=== PATIENT | male | born 1985 | race Caucasian/White ===

== ENCOUNTER 2017-02-01 04:24 | Observation (INO) | payer OTHER ==
--- NOTE | ~2017-02-01 | HP ---
Unit #: [id number] #: [id number] Patient: EVER CAMPOS JR [id number] [facility] [address] [facility]. [place], [place] [address] [id number] I MR#: [id number] NAME: EVER CAMPOS JR ROOM: [id number] Age: 31 Sex: M Admission Date: 02/01/2017 : 1985 Attending Physician: Nicci Padron M.D. Primary Care Physician: No Primary Care Physician HISTORY AND PHYSICAL CHIEF COMPLAINT Altered level of consciousness. HPI The patient is a 31-year-old male with past medical history of substance abuse and hypertension, who presented to the emergency department for evaluation of the above. The patient was apparently initially quite agitated. He had used methamphetamine. He was afraid someone was trying to hurt him. He did not have any suicidal or homicidal ideations. He received a total of 20 mg of Geodon and 3 mg of Ativan. He was placed on a 72-hold. At the time of my evaluation, the patient is awake and alert. He is oriented x3. He denies suicidal or homicidal ideations. He states that he used methamphetamine. He has a history of heroin abuse. Laboratory is notable for CPK of 2349. He was given 2 liters of normal saline in the emergency department. He is being admitted to [facility] for evaluation and further treatment. PAST MEDICAL HISTORY 1. The patient denies any hospitalizations. 2. Hypertension. PAST SURGICAL HISTORY Knee surgery. SOCIAL HISTORY The patient lives with his parents. He smokes a pack of cigarettes daily. He has a history of heroin abuse as well as methamphetamine. He works as a cook. FAMILY HISTORY Notable for both parents having hypertension. ALLERGIES No known allergies. HOME MEDICATIONS None. REVIEW OF SYSTEMS A complete review of systems is negative, except as indicated in the HPI. Unit #: [id number] #: [id number] Patient: EVER CAMPOS JR DIAGNOSTIC STUDIES LABORATORY: Troponin is less than 0.05. Complete blood count notable for hemoglobin of 16.1. Comprehensive metabolic panel notable for a CO2 of 20; anion gap is 10; glucose 113; AST and ALT 109 and 113, respectively; and total bilirubin is 3. Alcohol level is less than 5. Urine tox screen is positive for amphetamine and marijuana. CPK is 2349. PHYSICAL EXAMINATION VITAL SIGNS: Temperature is 97.7, pulse 126, respirations 28, blood pressure 143/91, and oxygen saturation is 98% on room air. GENERAL: The patient is a male who is awake and alert, but was previously quite agitated requiring restraints. HEENT: The head is atraumatic. Mucous membranes are moist. NECK: Supple. Trachea is midline. CARDIOVASCULAR: Regular rate and rhythm. LUNGS: Clear to auscultation bilaterally with no increased work of breathing. ABDOMEN: Soft and nontender with bowel sounds present in all four quadrants. EXTREMITIES: Nontender with no pedal edema. NEUROLOGIC: The patient is awake and alert. He is oriented x3. He follows commands. PSYCH: The patient was initially quite agitated and anxious. Now he is cooperative. SKIN: Skin of examined areas is warm and dry. ASSESSMENT The patient is a 31-year-old male with: 1. Altered mental status secondary to #2. 2. Methamphetamine abuse. 3. Rhabdomyolysis with an initial CPK of 2349. He has received 2 liters of normal saline. 4. Transaminitis. 5. Hypertension. 6. Tobacco abuse. PLAN 1. Admit for observation to intermediate level. 2. Normal saline at 150 mL/hour. 3. Neuro checks q.[address] Alan regarding substance abuse. 5. Check hepatitis panel, HIV, and right upper quadrant ultrasound for further evaluation of transaminitis and history of IV drug use. 6. SCDs for DVT prophylaxis. 7. See orders for details. 8. Additional workup and consultants based on above. 9. Repeat labs in the morning including CPK. Dictated by Winston Johnson TD: 02/01/2017 11:30 JOB #: [id number] Unit #: [id number] #: [id number] Patient: EVER CAMPOS JR HISTORY AND PHYSICAL Page 1 of 1 X Nicci Padron MD HISTORY AND PHYSICAL
--- NOTE | ~2017-02-01 | EKG ---
PATIENT: EVER CAMPOS UNIT #: [id number] Ventricular Rate: 109 BPM Atrial Rate: 109 BPM P-R Interval: 140 ms QRS Duration: 92 ms Q-T Interval: 322 ms QTC Calculation(Bezet): 433 ms P [place]: 60 degrees Calculated R [place]: 25 degrees Calculated T [place]: 35 degrees Diagnosis Line: Sinus tachycardia Diagnosis Line: Otherwise normal ECG Diagnosis Line: When compared with ECG of 09-JUN-2015 16:44, Diagnosis Line: No significant change was found Diagnosis Line: Confirmed by DARCY PINK MD ([id number]) on 02/02/2017 Diagnosis Line: 4:41:46 PM INTERPRETING MD: APRYL THOMAS
[~2017-02-01 04:24] MED LIST: ACETAMINOPHEN PO; ALBUTEROL17 GM INH; AMOXICILLIN500 M1 PO; BENZONATATE PO; MEDROL PO; NO MEDICATIONS; OMNICEF PO; PHENERGAN PO; PHENERGAN W/CO120 ML PO; VIBRAMYCIN100 M1 PO; VICODIN 5/500 T1 TAB PO; VOLTAREN75 MG PO
[2017-02-01 05:59] LABS: POC - CKMB 10.8 ng/mL (0.0-7.9); POC - TROPONIN <0.05 ng/mL (<=0.05)
[2017-02-01 06:04] LABS: BASOPHIL# 0.1 X10e3 (0-0.3); BASOPHIL% 0.7 % (0-2.5); EOSINOPHIL% 0.4 % (0.0-7.0); HEMATOCRIT 48.2 % (38.0-50.0); HEMOGLOBIN 16.1 gm/dL (13.0-16.0); LYMPHOCYTE# 1.7 X10e3 (1.0-3.5); LYMPHOCYTE% 17.3 % (17.0-45.0); MEAN CELL VOLUME 93.1 FL (83-96); MEAN CORPUSCULAR HEMOGLOBIN 31.2 PG (28-34); MEAN CORPUSCULAR HGB CONC 33.4 g/dL (30-36); MEAN PLATELET VOLUME 7.5 FL (6.5-11.5); MONOCYTE# 0.9 X10e3 (0-1.0); MONOCYTE% 9.4 % (3.0-12.0); NEUTROPHIL# 7.3 X10e3 (1.5-7.1); NEUTROPHIL% 72.2 % (40-75); PLATELET COUNT 245 X10e3 (140-420); RED BLOOD COUNT 5.18 X10e (3.90-5.60); RED CELL DISTRIBUTION WIDTH 12.9 % (11.0-15.5); WHITE BLOOD COUNT 10.1 X10e3 (4.0-10.5)
[2017-02-01 06:06] LABS: DIFF IND NO
[2017-02-01 06:35] LABS: ALBUMIN SERUM 4.5 g/dL (3.5-5.0); ALKALINE PHOSPHATASE 89 U/L (32-92); ALT (SGPT) 113 U/L (10-40); AST (SGOT) 109 U/L (10-42); BLOOD UREA NITROGEN 17 mg/dL (9-23); BUN/CREATININE RATIO 18.88; CALCIUM SERUM 9.1 mg/dL (8.4-10.2); CARBON DIOXIDE 20 mmol/L (22-31); CHLORIDE 106 mmol/L (100-111); CREATININE SERUM 0.9 mg/dL (0.6-1.4); GLOM FILT RATE Estimated 111.8 mL/min (>60); GLUCOSE FASTING 113 mg/dL (70-110); POTASSIUM 3.6 mmol/L (3.5-5.1); PROTEIN TOTAL SERUM 7.6 g/dL (6.0-8.3); SODIUM 136 mmol/L (135-145)
[2017-02-01 06:36] LABS: ALCOHOL BLOOD <5 mg/dL (0)
[2017-02-01 11:00] LABS: AMPHETAMINE POS (NEG); BARBITURATES NEG (NEG); BENZODIAZEPINES NEG (NEG); COCAINE NEG (NEG); MARIJUANA POS (NEG); OPIATES NEG (NEG); TRICYCLIC ANTIDEPRESSANTS NEG (NEG); U METHADONE NEG (NEG)
[2017-02-01 14:21] LABS: %MB 0.9 % (0.0-4.0); MB 17.6 ng/ml
== END 2017-02-01 16:45 ==
LOC: CED 04:24 → CEDOF 09:01
PROVIDERS: Emergency Medicine; Family Medicine
DX: R41.82 Altered mental status, unspecified (principal); F15.10 Other stimulant abuse, uncomplicated; M62.82 Rhabdomyolysis; R74.0 Nonspecific elevation of levels of transaminase and lactic acid dehydrogenase [LDH]; I10 Essential (primary) hypertension; F17.200 Nicotine dependence, unspecified, uncomplicated
CPT/HCPCS: 80053; 80307; 82550; 82553; 84484; 85025; 93005; 96361; 96372; 96374; 99285; G0378; G0480; J0515; J1630; J2060; J3486

== ENCOUNTER 2017-02-01 15:00 | Inpatient (IN) | payer OTHER ==
--- NOTE | ~2017-02-01 | DS ---
Unit #: [id number] #: [id number] Patient: EVER CAMPOS JR [id number] [facility] [address] [place] [address] [id number] I MR#: [id number] NAME: EVER CAMPOS JR ROOM: [facility] Age: 31 Sex: M Admission Date: 02/01/2017 : 1985 Discharge Date: 02/04/2017 Attending Physician: Bruno Alan M.D. Primary Care Physician: Primary Care Physician No DISCHARGE SUMMARY REASON FOR ADMISSION Substance abuse and psychosis. DIAGNOSTIC STUDIES LABORATORY RESULTS: Showed urine drug screen positive for amphetamine and marijuana. The patient's uric acid, LDH, phosphorus, and CK within normal range. CK is 629. The patient's CK on admission was 2349. HOSPITAL COURSE The patient was admitted to inpatient unit and treated with expressive therapy, medication management, psychoeducation, and psychotherapy. The patient was responsive to treatment. The patient was also followed by the medical doctor for increased CK enzyme. The patient showed improvement. Subsequently, the patient was discharged with a plan to follow up in outpatient program. DISCHARGE MEDICATIONS None. DISCHARGE DIAGNOSES Psychiatric: 1. Psychosis, not otherwise specified, F29.0. 2. Mood disorder, not otherwise specified, F32.9. 3. Amphetamine use disorder, severe, F15.20. Secondary diagnosis: Deferred. Medical diagnoses: Hypertension, rhabdomyolysis. Stressors: Psychosocial stressors. DISCHARGE INSTRUCTIONS The patient is to follow up in outpatient clinic as per child welfare social worker. CONDITION ON DISCHARGE The patient was pleasant and cooperative. Denied any psychotic symptom or any suicidal ideation. PROGNOSIS Guarded. DIET AND ACTIVITY As tolerated. Unit #: [id number] #: [id number] Patient: EVER CAMPOS JR Dictated by... Winston HarkinsC/hank TD: 02/05/2017 03:12 JOB #: [id number] DISCHARGE SUMMARY Page 1 of 1 X Bruno Alan MD DISCHARGE SUMMARY
--- NOTE | ~2017-02-01 | PA ---
Unit #: [id number] #: [id number] Patient: EVER CAMPOS JR [id number] [facility] [address] [place] [address] [id number] MR#: [id number] NAME: EVER CAMPOS JR ROOM: P257 Age: 31 Sex: M Admission Date: 02/01/2017 : 1985 Date of Assessment: Attending Physician: Bruno Alan M.D. Admitting Physician: Bruno Alan M.D. Primary Care Physician: Primary Care Physician No PSYCHIATRIC ASSESSMENT INFORMANTS The patient's reliability, fair; chart reliability, good. CHIEF COMPLAINT Depression, substance abuse, and psychosis. HISTORY OF PRESENT ILLNESS Mr. Maya is a 31-year-old white male, seen on 2-Laura with the above-mentioned complaint. The patient was transferred from [facility]. The patient presented there, placed on 72-hour hold. The patient presented due to altered mental status due to amphetamine overdose. The patient was given 2 mg of Ativan prior to the transport. The patient became sleepy and drowsy. The patient was combative with security sme. The patient needed restraint, having withdrawal symptom. The patient also received Geodon 20 mg IM. The patient's CPK was high; therefore, he was seen at [facility], CPK 2349. The patient was given 2 L of normal saline, [facility]. PAST PSYCHIATRIC HISTORY Unremarkable for any history of previous treatment. FAMILY HISTORY AND SOCIAL HISTORY The patient has a poor support system. No known history of any psychiatric illness in the family. No history of legal problem or abuse. MEDICAL HISTORY Remarkable for increased CPK, diagnosed with rhabdomyolysis and hypertension. MEDICATIONS HISTORY None. ALLERGIES No known drug allergies. SUBSTANCE ABUSE HISTORY The patient reported use of tobacco, marijuana, opioids, amphetamine, details unknown at this time. REVIEW OF SYSTEMS HEENT: Eyes, clear. Ears, nose, mouth, and throat; clear. CARDIOVASCULAR: Unremarkable. Unit #: [id number] #: [id number] Patient: EVER CAMPOS JR RESPIRATORY: Unremarkable. GI: Unremarkable. : Unremarkable. SKIN: Unremarkable. LYMPH NODE: Unremarkable. NEUROLOGIC: Unremarkable. ENDOCRINE: Unremarkable. HEMATOLOGIC: Unremarkable. ALLERGIC/IMMUNOLOGIC: Unremarkable. MUSCULOSKELETAL: Muscle strength and tone, no atrophy or abnormal movement. Gait normal. MENTAL STATUS EXAMINATION CONSTITUTIONAL: Measurement of vital signs; temperature 98.3, pulse 117, respirations 28. Height is 5 feet 10-1/2 inches and weight 219 pounds. GENERAL APPEARANCE: The patient tall, well built, dressed casually. The patient did not show any facial deformity. MUSCULOSKELETAL: Please see above. PSYCHIATRIC EXAMINATION Description of speech, slow. Description of thought process, circumstantial. Description of association; guarded and paranoid. Denied any thoughts of harming self or others, but aggressive behavior as mentioned above, substance abuse. Description of the patient's judgment; concerning everyday activity, poor. Social situation, poor. Concerning psychiatric condition, poor. Complete mental status examination; oriented in time, place, and person. Recent and remote memory, fair. Attention span and concentration, fair. Language, able to name object and repeat phrases. Fund of knowledge, aware of current event and passive vocabulary intact. Mood and affect, sad and dysphoric. Insight and judgment, fair to poor. ASSETS AND LIABILITIES Assets; the patient articulate, able to take care of his ADL. Liability; history of depression, aggression, substance abuse. ADMITTING DIAGNOSES Psychiatric: Psychosis, not otherwise specified, F29.0; mood disorder, not otherwise specified, F32.9; amphetamine use disorder, severe, F15.20. Secondary diagnosis: Deferred. Medical diagnoses: Increased CPK, hypertension, rhabdomyolysis. Stressors: Psychosocial stressors. PSYCHIATRIC PLAN AND TREATMENT GOAL 1. Advised to admit the patient on the inpatient unit. Provide safe, supportive, and structured environment. 2. Ordered labs; CBC, CMP, UA, and UDS. 3. Medical consult to evaluate the patient's medical condition, rhabdomyolysis and hypertension. 4. The patient to attend all the programing. Advised Zyprexa 10 mg b.i.d. for the above-mentioned symptom. Treatment goal to attain euthymic mood, gain insight into his problem, and learn coping skills. DISCHARGE PLAN Unit #: [id number] #: [id number] Patient: EVER CAMPOS JR Plan to stabilize the patient and consider followup in outpatient program. ESTIMATED LENGTH OF STAY 3 to 5 days. Dictated by... Bruno Alan M.D. GLENNA/hank HORNE: 02/02/2017 18:14 TD: 02/02/2017 23:42 JOB #: [id number] PSYCHIATRIC ASSESSMENT Page 1 of 1 X Bruno Alan MD PSYCHIATRIC ASSESSMENT
--- NOTE | ~2017-02-01 | HP ---
Unit #: [id number] #: [id number] Patient: EVER CAMPOS JR [id number] [place] [address] [id number] I MR#: [id number] NAME: EVER CAMPOS JR ROOM: P257 Age: 31 Sex: M Admission Date: 02/01/2017 : 1985 Attending Physician: Bruno Alan M.D. Admitting Physician: Bruno Alan M.D. Primary Care Physician: Primary Care Physician No HISTORY AND PHYSICAL HISTORY OF PRESENT ILLNESS The patient is a 31-year-old male admitted to [address] [place] [address] on 02/01/2017 for methamphetamine abuse. PAST MEDICAL HISTORY 1. Hypertension 2. Rhabdomyolysis PAST SURGICAL HISTORY Knee surgery. 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 He smokes one pack of cigarettes daily and has a history of heroin and methamphetamine use. FAMILY MEDICAL HISTORY Noncontributory. ALLERGIES No known drug allergies. CURRENT MEDICATIONS The patient is not on any home medications. REVIEW OF SYSTEMS CONSTITUTIONAL: No fever or chills. HEENT: Denies any sore throat, ear pain or runny nose. CARDIOVASCULAR: Denies chest pain, irregular heart rhythm or palpitations. CHEST: Denies shortness of breath or cough. No hemoptysis. GASTROINTESTINAL: Denies nausea, vomiting, diarrhea or chronic constipation. ENDOCRINE: Denies history of increased thirst or urination. No recent significant weight loss or gain. GENITOURINARY: Denies dysuria, frequency, or hematuria. SKIN: Denies any rashes. HEMATOLOGIC: Denies history of increased bleeding or bruising. MUSCULOSKELETAL: Denies any hot, swollen joints. No generalized muscle pain. NEUROLOGIC: Denies problems with vision or speech. No frequent, severe headaches. No numbness, tingling or weakness in any extremities. Denies loss of bladder or bowel control. PHYSICAL EXAM Unit #: [id number] #: [id number] Patient: EVER CAMPOS JR GENERAL: He is awake, alert and oriented in no acute distress. VITAL SIGNS: Temperature 97.7, heart rate 126, respiration 28, blood pressure 143/91. HEIGHT: 5'10". WEIGHT: 220 pounds. SKIN: Warm and dry without rash or lesion. HEENT: Normocephalic. TMs not viewed. Oral and nasal passages clear. Conjunctivae clear. PERRLA. EOMs intact. NECK: Supple without lymphadenopathy or thyromegaly. HEART: Regular rate and rhythm without murmur. LUNGS: Clear. ABDOMEN: Soft, nontender. : Not done. EXTREMITIES: No evidence of cyanosis, clubbing or edema. Moves all without focal deficit. NEUROLOGICAL: Grossly within normal limits. Cranial Nerves: II: Visual wallis are intact. III, IV AND : Extraocular movements are intact. Pupils are equal, round and reactive to light. V: Facial sensation is grossly normal. VII: Facial movements and expression are normal. VIII: Auditory acuity grossly intact. IX, X: Uvula is midline. Phonation is normal. XI: Patient shrugs shoulders and turns head normally. XII: Tongue protrudes in the midline. Sensory and Motor Function: Sensory and motor sensation is grossly normal. Motor: moves all extremities well. IMPRESSION 1. Psychiatric admission. 2. Polysubstance use. 3. Hypertension. 4. Rhabdomyolysis. RECOMMENDATIONS Psychiatric per psychiatrist. MEDICAL: No contraindication to participate in facility activities. MEDICAL PROGNOSIS Good. MEDICAL CONDITION Stable. Dictated by... Lisa Fernando/brice TD: 02/03/2017 05:57 JOB #: [id number] Unit #: [id number] #: [id number] Patient: EVER CAMPOS JR HISTORY AND PHYSICAL Page 1 of 1 X JASSON MACARIO APRN HISTORY AND PHYSICAL
--- NOTE | ~2017-02-01 | CO ---
Unit #: [id number] #: [id number] Patient: EVER CAMPOS JR [id number] [facility] [address] [place] [address] [id number] MR#: [id number] NAME: EVER CAMPSO JR ROOM: P257 Age: 31 Sex: M Admission Date: 02/01/2017 : 1985 Attending Physician: Bruno Alan M.D. Primary Care Physician: Primary Care Physician No Consultation Date: 02/02/2017 CONSULTATION REPORT ORDERING PROVIDER Dr. Alan. REASON FOR CONSULT To follow up on rhabdomyolysis. SUBJECTIVE The patient has no complaints. He denies any muscle pain. In fact, he did not know that the hospital gave him a diagnosis of rhabdo. He reports that he feels fine other than some fatigue. He does report a history of drug use and reports that it is very likely that he could have been dehydrated. OBJECTIVE Notes from [facility] were reviewed and CK level was noted to be 20, 30, 49. He was given fluids and [facility] to [facility]. ASSESSMENT Rhabdomyolysis. PLAN To get lab work in the morning including CK, phosphate, uric acid, PT, PTT, aldolase and LDH. Dictated by... Lisa Fernando/hank TD: 02/03/2017 01:31 JOB #: [id number] CONSULTATION REPORT Page 1 of 1 X JASSON MACARIO APRN CONSULTATION REPORT
--- NOTE | ~2017-02-01 | PN ---
Unit #: [id number] #: [id number] Patient: EVER CAMPOS JR [id number] [facility] [address] [place] [address] [id number] MR#: [id number] NAME: EVER CAMPOS JR ROOM: P257 Age: 31 Sex: M Admission Date: 02/01/2017 : 1985 Attending Physician: Bruno Alan M.D. Admitting Physician: Bruno Alan M.D. Primary Care Physician: Primary Care Physician Lanie PERES PROGRESS NOTES DATE 02/02/2017 DISCUSSION Mr. Maya is a 31-year-old male seen on 02/02/2017. The patient interviewed, chart reviewed. Obtained information from nursing staff. The patient was compliant and cooperative. The patient still somewhat mad, isolative, sad, dysphoric, but less guarded, paranoid, denied any hallucination. Denied any thoughts of harming self or others. Vital 97.6, 126, 18. Oxygen saturate 98. Blood pressure 143/91. Complete review of systems unremarkable. MENTAL STATUS EXAMINATION General appearance, the patient dressed casually. Attention span and concentration fair. Oriented to place and person. Mood and affect labile. Speech monotone. Thought process concrete. The patient denied any thoughts of harming self or others. Recent and remote memory poor. Insight and judgement poor. DIAGNOSES Psychosis NOS Mood disorder NOS Cannabis abuse moderate F152.0 ASSESSMENT/PLAN Advise to continue with current therapeutic on the inpatient unit. If needed consider further adjustment of medication. We will closely monitor and also followup with the patient's medical condition. Dictated by... Winston Harkins/brice TD: 02/04/2017 04:44 JOB #: [id number] Unit #: [id number] #: [id number] Patient: EVER CAMPOS JR [place] PROGRESS NOTES Page 1 of 1 X Bruno Alan MD PROGRESS NOTE
--- NOTE | ~2017-02-01 | PN ---
Unit #: [id number] #: [id number] Patient: EVER ODELL JR [id number] [facility] [address] [place] [address] [id number] I MR#: [id number] NAME: EVER ODELL JR ROOM: P257 Age: 31 Sex: M Admission Date: 02/01/2017 : 1985 Attending Physician: Bruno Alan M.D. Admitting Physician: Bruno Alan M.D. Primary Care Physician: Primary Care Physician Lanie JUAREZ NOTES DATE OF SERVICE: 02/03/2017 DISCUSSION Mr. Ever Odell is a 31-year-old male, seen on 02/03/2017. The patient interviewed, chart reviewed, and obtained information from nursing staff. The patient was compliant and cooperative, able to maintain safe behavior, no aggressive behavior. The patient still somewhat guarded and paranoid. The patient is isolative, guarded, flat affect. The patient's uric acid 8.7, LDH 165, phosphorous 4.0, CK 629. The patient's PT and PTT within normal range. REVIEW OF SYSTEMS Complete review of systems unremarkable. MENTAL STATUS EXAMINATION General appearance; the patient dressed casually in hospital attire. Attention span and concentration, fair. Oriented in time, place, and person. Mood and affect, labile. Speech, regular rate. Thought process, goal directed. The patient denied any thoughts of harming self or others. Recent and remote memory, poor. Insight and judgment, poor. DIAGNOSES 1. Amphetamine use disorder, severe, F15.20. 2. Cannabis abuse, moderate, F12.20. 3. Psychosis, not otherwise specified. ASSESSMENT/PLAN Advised to continue with current medication and therapeutic protocol. If needed, consider further adjustment of medication. Plan to consider discharge this week. Dictated by... Bruno Alan M.D. GLENNA/hank TD: 02/05/2017 00:19 JOB #: [id number] Unit #: [id number] #: [id number] Patient: EVER ODELL JR [facility] PROGRESS NOTES Page 1 of 1 X Bruno Alan MD PROGRESS NOTE
[2017-02-02 15:32] LABS: BASOPHIL% 0.5 % (0-2.5); EOSINOPHIL# 0.2 X10e3 (0-0.7); HEMATOCRIT 44.9 % (38.0-50.0); HEMOGLOBIN 15.2 gm/dL (13.0-16.0); LYMPHOCYTE# 1.6 X10e3 (1.0-3.5); LYMPHOCYTE% 22.6 % (17.0-45.0); MEAN CELL VOLUME 92.8 FL (83-96); MEAN CORPUSCULAR HEMOGLOBIN 31.5 PG (28-34); MEAN CORPUSCULAR HGB CONC 33.9 g/dL (30-36); MEAN PLATELET VOLUME 7.6 FL (6.5-11.5); MONOCYTE# 0.5 X10e3 (0-1.0); MONOCYTE% 7.4 % (3.0-12.0); NEUTROPHIL# 4.8 X10e3 (1.5-7.1); NEUTROPHIL% 66.5 % (40-75); PLATELET COUNT 221 X10e3 (140-420); RED BLOOD COUNT 4.84 X10e (3.90-5.60); RED CELL DISTRIBUTION WIDTH 12.8 % (11.0-15.5); WHITE BLOOD COUNT 7.3 X10e3 (4.0-10.5)
[2017-02-02 15:34] LABS: DIFF IND NO
[2017-02-02 15:54] LABS: ALBUMIN SERUM 3.8 g/dL (3.5-5.0); BILIRUBIN,TOTAL 2.5 mg/dL (0.2-2.0); CALCIUM SERUM 8.8 mg/dL (8.4-10.2); CREATININE SERUM 0.7 mg/dL (0.6-1.4); POTASSIUM 4.2 mmol/L (3.5-5.1); PROTEIN TOTAL SERUM 6.4 g/dL (6.0-8.3)
[2017-02-03 09:46] LABS: PARTIAL THROMBOPLASTIN TIME 26.2 SECONDS (23.5-31.3)
[2017-02-03 10:40] LABS: URIC ACID 8.7 mg/dL (2.6-7.2)
== END 2017-02-04 10:30 | disposition home or self-care (01) | DRG 885 ==
LOC: P2L 17:07
PROVIDERS: Nurse Practitioner Adult Health; Psychiatry & Neurology Psychiatry
DX: F29 Unspecified psychosis not due to a substance or known physiological condition (principal); M62.82 Rhabdomyolysis; F15.20 Other stimulant dependence, uncomplicated; F39 Unspecified mood [affective] disorder; I10 Essential (primary) hypertension; T43.621D Poisoning by amphetamines, accidental (unintentional), subsequent encounter; F17.210 Nicotine dependence, cigarettes, uncomplicated; F12.20 Cannabis dependence, uncomplicated
CPT/HCPCS: 80053; 82085; 82550; 83615; 84100; 84550; 85025; 85610; 85730